=== PATIENT | female | born 1985 | race Caucasian/White ===

== ENCOUNTER 2019-06-14 00:15 | Observation (INO) ==
[2019-06-14] MEDS ORDERED: 0.9 % Sodium Chloride 1,000 ML IVC ONE (00:36)
[2019-06-14] MEDS ORDERED: cefTRIAXone 1,000 MG in Water for inj. (sterile) 10 ML IVP ONE (00:41)
[2019-06-14] MEDS ORDERED: Ketorolac 15 MG/ML VIAL IVP ONE (00:46)
[2019-06-14 01:18] LABS: Basophils % 0.5 %; Hematocrit 32.2 % (35.3-44.9); Hemoglobin 10.7 g/dL (11.5-15.4); Immature Granulocytes % 0.9 % (0-4); Lymphocytes # 2.4 K/mcL (0.6-4.6); Lymphocytes % 27.2 %; Mean Corpuscular HGB Conc 33.2 g/dL (31.6-35.5); Mean Corpuscular Hemoglobin 27.4 pg (28.0-33.3); Mean Corpuscular Volume 82.4 fL (83.0-100.0); Mean Platelet Volume 10.4 fL (9.4-12.4); Monocytes # 0.6 K/mcL (0.0-1.3); Monocytes % 7.2 %; Neutrophils # 5.7 K/mcL (1.6-8.9); Platelet Count 306 K/mcL (140-400); Red Blood Count 3.91 M/mcL (3.82-4.97); Red Cell Distribution Width 15.4 % (11.5-14.5); Segmented Neutrophils % 64.2 %; White Blood Count 8.9 K/mcL (4.3-11.1)
[2019-06-14 01:37] LABS: BUN/Creatinine Ratio 16 (6-26); Blood Urea Nitrogen 10 mg/dL (6-20); Calcium 8.9 mg/dL (8.6-10.3); Carbon Dioxide 24 mEq/L (23-29); Chloride 103 mEq/L (98-107); Glucose 92 mg/dL (70-105); Osmolality,Calculated 283 (280-300); Potassium 3.4 mEq/L (3.5-5.1); Sodium 137 mEq/L (136-145); eGFR For African Americans > 60 (> 60); eGFR For Non-African Americans > 60 (> 60)
[2019-06-14] MEDS ORDERED: Acetaminophen 325 MG TABLET PO PRN ×2 (01:49)
[2019-06-14] MEDS ORDERED: *HR* FentaNYL (PF) 100 MCG/2 ML VIAL IVP ONE (01:50)
[2019-06-14 01:52] LABS: Platelet Estimate Normal (Normal)
[2019-06-14] MEDS ORDERED: Potassium Chloride Elixir 20 MEQ/15 ML UDC PO ONE (02:12)
[2019-06-14] MEDS: Ringers Solution, Lactated 1,000 ML IVC SCH ×2 (03:01→12:00)
[2019-06-14] MEDS: Ondansetron 4 MG/2 ML VIAL IVP PRN ×2 (03:08→22:13)
[2019-06-14 04:23] LABS: Amphetamine Screen,Urine Negative ng/mL (Cutoff=1000); Barbiturate Screen,Urine Negative ng/mL (Cutoff=200); Benzodiazepines Screen,Urine Negative ng/mL (Cutoff=200); Cannabinoid Screen,Urine Negative ng/mL (Cutoff = 50); Cocaine Screen,Urine Positive ng/mL (Cutoff= 300); Opiate Screen,Urine Positive ng/mL (Cutoff=300); Phencyclidine Screen,Urine Negative ng/mL (Cutoff=25)
[2019-06-14] MEDS: *HR* Heparin 5,000 UNIT/ML VIAL SQ SCH ×3 (06:11→20:53)
[2019-06-14] MEDS: Piperacillin/Tazobactam 3.375 GM in 0.9 % Sodium Chloride Mini Bag 100 ML IVPB SCH ×2 (08:41→16:26)
[2019-06-14] MEDS: *HR* OxyCODONE Immed Rel 5 MG TABLET PO PRN ×3 (08:42→20:54)
[2019-06-14] MEDS: Ketorolac 30 MG/ML VIAL IVP PRN ×2 (12:00→19:53)
[2019-06-14] MEDS ORDERED: Aminoglycoside Consult 1 EACH MC ONE (14:25)
[2019-06-14] MEDS: Nicotine 14 MG PATCH.TD24 TD SCH (20:53)
[2019-06-15] MEDS: Piperacillin/Tazobactam 3.375 GM in 0.9 % Sodium Chloride Mini Bag 100 ML IVPB SCH ×2 (00:50→09:00)
[2019-06-15] MEDS: *HR* OxyCODONE Immed Rel 5 MG TABLET PO PRN ×3 (02:34→12:32)
[2019-06-15] MEDS: *HR* Heparin 5,000 UNIT/ML VIAL SQ SCH (05:07)
[2019-06-15] MEDS: Ketorolac 30 MG/ML VIAL IVP PRN (05:07)
[2019-06-15 07:51] LABS: Hematocrit 28.1 % (35.3-44.9); Hemoglobin 9.2 g/dL (11.5-15.4); Mean Corpuscular HGB Conc 32.7 g/dL (31.6-35.5); Mean Corpuscular Hemoglobin 27.1 pg (28.0-33.3); Mean Corpuscular Volume 82.9 fL (83.0-100.0); Mean Platelet Volume 11.1 fL (9.4-12.4); Platelet Count 243 K/mcL (140-400); Red Blood Count 3.39 M/mcL (3.82-4.97); White Blood Count 4.8 K/mcL (4.3-11.1)
[2019-06-15 08:31] VITALS: BP 107/64
[2019-06-15] MEDS: Nicotine 14 MG PATCH.TD24 TD SCH (09:01)
== END 2019-06-15 14:26 | disposition home or self-care (01) ==
LOC: 3NENU 00:15 → EMEROOARM 00:15 → SUATTDRO 01:48 → 3NENU 02:22
PROVIDERS: ADMIT Internal Medicine; ATTEND Internal Medicine